=== PATIENT | male | born 1990 | race Caucasian/White ===

== ENCOUNTER 2018-10-18 19:23 | Emergency (ER) | payer SELFPAY ==
[~2018-10-18] VITALS: Ht 160 cm; Wt 82.1 kg
[2018-10-18 19:32] VITALS: Ht 160 cm; Wt 82.1 kg
[2018-10-18 21:06] VITALS: BP 116/76
== END 2018-10-18 21:06 | disposition home or self-care (01) ==
LOC: ED 19:23
DX: L50.9 Urticaria, unspecified (principal)
CPT/HCPCS: J7512; J8540; Q0163